=== PATIENT | female | born 1995 | race Caucasian/White ===

== ENCOUNTER 2019-09-12 04:30 | Emergency (ER) | payer SELFPAY ==
[~2019-09-12] VITALS: Ht 170.2 cm; Wt 54.0 kg
[2019-09-12] MEDS ORDERED: ONDANSETRON HCL/PF 4 MG/2 ML VIAL ONE (04:39)
[2019-09-12 04:48] LABS: BASOPHILS % (AUTO) 0.2 % (0.0-2.0); HEMATOCRIT 40 % (33-45); HEMOGLOBIN 13.3 g/dL (11.5-14.8); LYMPHOCYTES # (AUTO) 0.7 /CMM (0.8-4.8); LYMPHOCYTES % (AUTO) 9.7 % (20.0-44.0); MEAN CORPUSCULAR HGB CONC 34 g/dl (31.0-36.0); MEAN CORPUSCULAR VOLUME 91 fL (82-100); MONOCYTES # (AUTO) 0.3 /CMM (0.1-1.30); MONOCYTES % (AUTO) 3.8 % (2.0-12.0); NEUTROPHILS # (AUTO) 6.4 /CMM (1.8-8.9); NEUTROPHILS % (AUTO) 86.3 % (43.0-81.0); PLATELET COUNT (AUTO) 219 /CMM (150-450); RED BLOOD CELL COUNT(AUTO) 4.35 MIL/uL (4.0-5.2); WHITE BLOOD COUNT (AUTO) 7.4 K/uL (4.3-11.0)
--- NOTE | 2019-09-12 04:48 | NUR ---
PT BIBRA C/O PANIC ATTACK AND ABDOMINAL PAIN +N/V. PT AAOX4, VSS, RESPIRATIONS EVEN AND UNLABORED ON RA W/ AND NOTED. PT CONNECTED TO THE MONITOR AND POX
[2019-09-12] MEDS ORDERED: LORAZEPAM INJ 2 MG/ML VIAL ONE ×2 (04:53→05:40)
[2019-09-12 04:55] LABS: CALCIUM, SERUM 9.5 mg/dL (8.5-10.1); CREATININE 0.8 mg/dL (0.6-1.3); POTASSIUM 3.9 mmol/L (3.5-5.1)
[2019-09-12] MEDS ORDERED: IV NS 0.9% 1,000 ML BAG IV ONE (05:00)
[2019-09-12] MEDS ORDERED: ONDANSETRON HCL/PF 4 MG/2 ML VIAL IVP ONE (05:00)
[2019-09-12] MEDS ORDERED: LORAZEPAM INJ 2 MG/ML VIAL IV ONE ×2 (05:00→05:30)
[2019-09-12 05:01] LABS: ALBUMIN 4.4 g/dL (3.4-5.0); BILIRUBIN,DIRECT 0.1 mg/dL (0.0-0.2); BILIRUBIN,TOTAL 0.5 mg/dL (0.2-1.0); TOTAL PROTEIN, SERUM 7.6 g/dL (6.4-8.2)
--- NOTE | 2019-09-12 05:01 | NUR ---
PT TAKEN TO RADIOLOGY FOR CT
[2019-09-12] MEDS ORDERED: IOHEXOL-300 100 ML VIAL IV ONE (05:09)
[2019-09-12] MEDS ORDERED: CT SWABBABLE VALVE TRANS SET 1 EA INFUS.SET MC ONE (05:09)
[2019-09-12] MEDS ORDERED: IV NS 0.9% 250 ML IV ONE (05:09)
[2019-09-12] MEDS ORDERED: METOCLOPRAMIDE HCL 10 MG/2 ML VIAL ONE (05:20)
[2019-09-12] MEDS ORDERED: METOCLOPRAMIDE HCL 10 MG/2 ML VIAL IV ONE (05:30)
--- NOTE | 2019-09-12 05:35 | NUR ---
PT TAKEN TO RADIOLOGY FOR CT
--- NOTE | 2019-09-12 05:44 | NUR ---
PT BACK FROM CT
[2019-09-12 06:52] VITALS: BP 100/84
--- NOTE | 2019-09-12 06:52 | NUR ---
Patient discharged to home in stable condition. Written and verbal after care instructions given. Patient verbalizes understanding of instruction. ambulatory with a steady gait
== END 2019-09-12 06:53 | disposition home or self-care (01) ==
LOC: ER 04:32
DX: R10.13 Epigastric pain (principal); R11.2 Nausea with vomiting, unspecified
CPT/HCPCS: 36415; 74177; 80048; 80076; 83690; 84702; 85025; 96361; 96374; 96375; 96376; 99285; J2060; J2405; J2765; J7030; J7050; Q9967